=== PATIENT | male | born 1950 | race Caucasian/White ===

== ENCOUNTER → 2017-10-31 | Outpatient (CLI) | payer MEDICARE, BC ==
[~2017-10-31] MED LIST: COZAAR 25MG25 MG/TAB PO; HCTZ 25MG TAB25 MG PO
== END ==
LOC: COL.RAD 12:50
DX: N20.0 Calculus of kidney (principal); K80.20 Calculus of gallbladder without cholecystitis without obstruction

== ENCOUNTER → 2021-10-02 | Outpatient (CLI) | payer MEDICARE, BC | LOC: COL.RAD 08:56 | DX: Z12.2 Encounter for screening for malignant neoplasm of respiratory organs (principal); F17.200 Nicotine dependence, unspecified, uncomplicated; K80.20 Calculus of gallbladder without cholecystitis without obstruction; E83.59 Other disorders of calcium metabolism; N29 Other disorders of kidney and ureter in diseases classified elsewhere ==